=== PATIENT | female | born 1995 ===

== ENCOUNTER → 2018-12-06 | Outpatient (CLI) | payer BC ==
--- NOTE | 2018-12-07 08:28 | RADIOLOGY REPORT (SQ) ---
EXAM DESCRIPTION: MRI LT LOWER EXTREMITY WITHOUT COMPLETED DATE/TIME: 12/06/2018 7:03 pm REASON FOR STUDY: M79.672 PAIN IN LEFT FOOT M79.672 PAIN IN LEFT FOOT COMPARISON: None. TECHNIQUE: T1-weighted, T2-weighted, and gradient echo noncontrast multiplanar imaging of the left f oot. Field of view is from mid tarsals through proximal phalanges. LIMITATIONS: None. FINDINGS: MARROW SIGNAL: No evidence of overt fracture. Very subtle marrow edema in the 1st and 2nd metatarsal bases. Minimal widening of the intermetatarsal space here. Correlate with radiographs. The 2nd tarsometatarsal articulation may also be very slightly subluxed. Narrowing at most of the t arsometatarsal articulations. Note is also made of some edema in the medial hallux sesamoid. Probab le sclerosis in the lateral sesamoid. No sesamoid fracture line identified. JOINT EFFUSION: No significant effusions. PLANTAR FASCIA: Normal as visualized. TARSOMETATARSAL AND TOE ARTICULATIONS: As above. Toes intact. INTERMETATARSAL SPACES AND PLANTAR PLATES: Intact. No soft tissue mass to suggest a neuroma. SOFT TISSUES: No masses. No fibrosis. OTHER: No other significant finding. IMPRESSION: 1. Slight widening of the space between the 1st and 2nd metatarsal bases may reflect subtle Lisfranc injury. Narrowing also noted in the adjacent tarsometatarsal articulations with potential 2nd TMT sl ight subluxation. This is also suspicious for significant injury to these articulations. No displac ed fracture. 2. Suspect sesamoiditis without fracture or subluxation. TECHNICAL DOCUMENTATION: JOB ID: [id number] [employer]- All Rights Reserved Reading location - IP/workstation name: [email or web address]
== END ==
LOC: RAD 20:10
PROVIDERS: ATTEND Orthopaedic Surgery
DX: M79.672 Pain in left foot (principal); M25.872 Other specified joint disorders, left ankle and foot